=== PATIENT | male | born 1985 | race Caucasian/White ===

== ENCOUNTER 2023-11-22 19:24 | Emergency (ER) | payer OTHER, SELFPAY | END 2023-11-22 22:00 | disposition left against medical advice (07) | PROVIDERS: Emergency Provider Emergency Medicine | DX: S61.412A Laceration without foreign body of left hand, initial encounter (principal); X58.XXXA Exposure to other specified factors, initial encounter; Y93.9 Activity, unspecified; Y92.9 Unspecified place or not applicable; Y99.9 Unspecified external cause status; Z53.21 Procedure and treatment not carried out due to patient leaving prior to being seen by health care provider ==